=== PATIENT | male | born 1950 | race Caucasian/White ===

== ENCOUNTER 2019-06-17 07:27 | Inpatient (IN) ==
--- NOTE | 2019-05-16 15:02 | PAT Medication Instructions ---
Medication Instructions Date of Service May 16, 2019 Home Medications acetaminophen 500 mg PO Q6H PRN 05/10/19 [History Confirmed 05/10/19] albuterol sulfate [Ventolin HFA] 2 puff INHALATION Q6H PRN 05/10/19 [History Confirmed 05/10/19] aspirin [Aspirin Low Dose] 81 mg PO QAM 05/10/19 [History Confirmed 05/10/19] atorvastatin 40 mg PO PM 05/10/19 [History Confirmed 05/10/19] clopidogrel 75 mg PO QAM 05/10/19 [History Confirmed 05/10/19] loratadine 10 mg PO QAM 05/10/19 [History Confirmed 05/10/19] losartan 25 mg PO QAM 05/10/19 [History Confirmed 05/10/19] multivitamin 1 tab PO QAM 05/10/19 [History Confirmed 05/10/19] omega 0-lkd-dxq-fish oil [Fish Oil] 1 cap PO QAM 05/10/19 [History Confirmed 05/10/19] pantoprazole 40 mg PO QAM 05/10/19 [History Confirmed 05/10/19] tamsulosin 0.4 mg PO QPM 05/10/19 [History Confirmed 05/10/19] ASK your prescriber and surgeon aspirin [Aspirin Low Dose] 81 mg PO QAM 05/10/19 [History Confirmed 05/10/19] clopidogrel 75 mg PO QAM 05/10/19 [History Confirmed 05/10/19] STOP taking 2 weeks before surgery (or as soon as possible if surgery is within 2 weeks) omega 7-jsb-htn-fish oil [Fish Oil] 1 cap PO QAM 05/10/19 [History Confirmed 05/10/19] DO NOT take the morning of surgery loratadine 10 mg PO QAM 05/10/19 [History Confirmed 05/10/19] losartan 25 mg PO QAM 05/10/19 [History Confirmed 05/10/19] multivitamin 1 tab PO QAM 05/10/19 [History Confirmed 05/10/19] Take morning of surgery With a small sip of water, OTHERWISE NOTHING TO EAT OR DRINK AFTER MIDNIGHT: acetaminophen 500 mg PO Q6H PRN (okay to take up to 4 hours prior to surgery if needed) albuterol sulfate [Ventolin HFA] 2 puff INHALATION Q6H PRN (use if needed; please bring with you to hospital day of surgery if possible) pantoprazole 40 mg PO QAM 05/10/19 [History Confirmed 05/10/19] Take evening before surgery acetaminophen 500 mg PO Q6H PRN (if needed) albuterol sulfate [Ventolin HFA] 2 puff INHALATION Q6H PRN (if needed) tamsulosin 0.4 mg PO QPM 05/10/19 [History Confirmed 05/10/19] Other Notes If you have any questions please call us at [phone] or [phone] or [phone] or [phone]
--- NOTE | 2019-05-17 10:42 | Anesthesiology Consultation ---
Date of Service May 17, 2019 Assessment & Plan (1) Encounter for pre-operative examination: - ASA/plavix instructions per surgeon/prescriber - Cardiology: 06/11/18: "Overall stable from cardiac perspective. Will refer to thoracic medicine. Has chronic limiting class III RANGEL symptoms for several years. Cardiac work-up negative in the past. Dobutamine stress echo 06/2017 negative for ischemia. No major valvular heart disease. No CHF. Pro-BNP negative in the past. Will continue same medications." - Thoracic medication: 09/11/18: Dx interstitial lung disease. CT reviewed. " Patient is clinically stable." Chart Review Chart Review: Pending: Refer to Additional Notes / Consult section (pending preop testing (labs, EKG)) and Patient seen in Pre Admission Testing Teaching & Discussion Pre-Anesthesia Teaching/Discussion Notes: Instructed NPO after midnight before surgery,except medications with 15 cc of water. Medication instructions provided according to the PAT guidelines. History Surgery Operation Date: 06/17/19 09:30 Proposed Procedures p Right Total Shoulder Arthroplasty, Distal Clavical Excision - Boston Burch MD Height/Weight Height: 6 ft 7 in Weight: 104.8 kg Allergies Allergy/AdvReac Type Severity Reaction Status Date / Time Iodinated Contrast Media Allergy Unknown TROUBLE Verified 05/10/19 08:58 BREATHING Medications Home Medications Medication Instructions Recorded Confirmed Last Taken acetaminophen 500 mg PO Q6H PRN 05/10/19 05/10/19 Unknown albuterol sulfate [Ventolin HFA] 2 puff INHALATION Q6H PRN 05/10/19 05/10/19 Unknown aspirin [Aspirin Low Dose] 81 mg PO QAM 05/10/19 05/10/19 Unknown atorvastatin 40 mg PO PM 05/10/19 05/10/19 Unknown clopidogrel 75 mg PO QAM 05/10/19 05/10/19 Unknown loratadine 10 mg PO QAM 05/10/19 05/10/19 Unknown losartan 25 mg PO QAM 05/10/19 05/10/19 Unknown multivitamin 1 tab PO QAM 05/10/19 05/10/19 Unknown omega 1-yhq-oev-fish oil [Fish Oil] 1 cap PO QAM 05/10/19 05/10/19 Unknown pantoprazole 40 mg PO QAM 05/10/19 05/10/19 Unknown tamsulosin 0.4 mg PO QPM 05/10/19 05/10/19 Unknown Past Medical History Medical History (Updated 05/17/19 @ 11:11 by Shara Talbot) Arthritis BPH (benign prostatic hyperplasia) CAD (coronary artery disease) BMS x 1 to LAD (2015) Cancer of kidney s/p resection (no chemo/no XRT) COPD (chronic obstructive pulmonary disease) controlled GERD (gastroesophageal reflux disease) History of skin cancer Hx of myocardial infarction BMS x 1 to LAD (2015) Hx of sleep apnea CPAP (patient non-compliant/will try to be more compliant leading up to surgery) Hyperlipidemia Hypertension Interstitial lung disease Exercise / Class Metabolic Activity III < 4 Walking/Shop/Light housework Past Family History Family History Sister Family history of diabetes mellitus Daughter FHx: cancer Mother FHx: cancer Sister FHx: cancer Past Surgical History Surgical History History of endoscopic sinus surgery Endoscopic sinus surgery: 02/03/14: Grade I DD, MAC#4, ETT 8 at [facility] [place] History of kidney surgery biopsy, kidney mass resection (cancerous) Hx of cardiac cath BMS x 1 to LAD (2015) Hx of colonoscopy Hx of left cataract extraction Hx of prostate biopsy Hx of right cataract extraction Past Anesthesia History No Family Hx of Anesthesia Complications and Other Perioperative bradycardia with remote kidney mass resection ([facility])- unable to obtain records. No similar issues with subsequent endoscopic sinus surgery 01/2014 at [facility]. History of PONV No Hx of PONV and No Hx of Motion Sickness Social History Smoking Status: Never smoker Do You Dip or Chew Tobacco: No Hx Alcohol Use: Yes Alcohol type: beer alcohol intake frequency: holidays/special occasions only Hx Substance Use: No Review of Systems Patient denies chest pain, shortness of breath, cough, wheezing, palpitations. Physical Exam Vital Signs VITALS BP 162/92 (patient reports did not take BP medications this morning/advised the importance of compliance) P 96 TEMP 98.4 SP02 96%RA RESP 18 PHYSICAL Full neck and c-spine range of motion. Full TMJ range of motion. TMD 3 finger breaths Mallampati Score 2 Dentition: upper/lower dentures full Lungs: clear throughout to auscultation Cardiac: regular rate and rhythm, no murmurs noted Spine: normal Carotid arteries: negative bruit Extremities: no edema Testing Echocardiogram Date: 11/04/15 LVEF 50-54%. Moderately increased cLV wall thickness. Moderate sized apical anteroseptal wall motion abnormality with HK to akinesis of these segments. Grade I DD. Stress Test Date: 06/22/17 Type: exercise Stress ECHO negative for inducible ischemia. Resting wall motion suggests [place] in LAD after first septal branch. No new dobutamine induced wall motion abnormality. 88% MPHR. Cardiac Catheterization Date: 09/19/15 99% mid LAD lesion--> balloon angioplasty--> BMS placed. Other Testing Chest CT: 08/28/18: No focal consolidation. Mildly prominent mediastinal lymph nodes (likely reactive). Chronic interstitial lung disease, unchanged.
[2019-05-17 11:33] LABS: Basophils # (auto) 0.02 K/uL (0-0.2); Basophils % (auto) 0.2 %; Eosinophils # (auto) 0.18 K/uL (0-0.5); Eosinophils % (auto) 1.8 %; Hematocrit (blood only) 46.8 % (42-52); Immature Granulocytes # (auto) 0.01 K/uL (0.00-0.02); Immature Granulocytes % (auto) 0.1 %; Lymphocytes % (auto) 20.5 %; Mean Corpuscular Hemoglobin 30.5 pg (25-34); Mean Corpuscular Hgb Conc 34.2 g/dL (32-36); Mean Corpuscular Volume 89.3 fL (80-100); Mean Platelet Volume 10.2 fL (7.4-10.4); Monocytes # (auto) 0.55 K/uL (0.11-0.59); Monocytes % (auto) 5.4 %; Platelet Count 166 K/uL (130-400); RDW Coefficient of Variation 14.4 % (11.5-14.5); Red Blood Count 5.24 M/uL (4.7-6.1); White Blood Count 10.26 K/uL (4.8-10.8)
[2019-05-17 11:45] LABS: Appearance Urine Clear (Clear); Bacteria Urine Automated Negative (Negative); Bilirubin Urine Negative (Negative); Blood Urine Trace (Negative); Color Urine Yellow; Epithelial Cell Urine Auto 0-5 /lpf (0-5); Glucose Urine UA Negative (Negative); Ketones Urine Negative (Negative); Leukocyte Esterase Urine Negative (Negative); Nitrite Urine Negative (Negative); Protein Urine 3+ (Negative); RBC Urine Automated 0-4 /hpf (0-4); Specific Gravity Urine 1.018 (1.000-1.030); Urobilinogen Urine Negative (Negative)
[2019-05-17 11:46] LABS: INR 1.1 (0.9-1.1); Partial Thromboplastin Time 27.9 Seconds (21.0-31.0); Prothrombin Time 11.2 Seconds (9.0-12.0)
[2019-05-17 11:54] LABS: Albumin Level 3.8 gm/dl (3.4-5.0); BUN Creatinine Ratio 13.5 (10-20); Calcium 10.8 mg/dl (8.5-10.1); Creatinine Clr Calc Pharmacy 56.1 ml/min; Est GFR (Non-African American) 41.4; Potassium 4.3 mmol/L (3.5-5.1)
[2019-05-17 11:58] LABS: Estimated Average Glucose 105 mg/dl; Hemoglobin A1C 5.3 % (4.5-5.6)
--- NOTE | 2019-06-16 17:38 | History and Physical Report ---
DATE OF ADMISSION: 06/17/2019 CHIEF COMPLAINT: Chronic right shoulder pain. HISTORY OF PRESENT ILLNESS: This is a 68-year-old male patient of Dr. Red, complaining of chronic right shoulder pain, longstanding, now progressively getting worse. The patient has been diagnosed with end-stage osteoarthritis per clinical and radiographic exams. The patient has failed conservative treatment and wishes to proceed with a right total shoulder arthroplasty and open distal clavicle excision. PAST MEDICAL HISTORY: Coronary artery disease, status post an NE in 2016, hypertension, hypercholesterolemia, sleep apnea, anemia, rheumatoid arthritis, osteoarthritis, acid reflux, obesity. SOCIAL HISTORY: Nonsmoker, nondrinker. PAST SURGICAL HISTORY: Sinus surgery, kidney mass removal and a chest cyst removal. REVIEW OF SYSTEMS: Chronic right shoulder pain. Otherwise, denies any shortness of breath, chest pain, nausea, vomiting or any other joint complaints. FAMILY HISTORY: Noncontributory. MEDICATIONS: 1. Loratadine 10 mg daily. 2. Fluticasone 50 mcg actuation inhaler 1 spray daily in each nostril. 3. Ferrous fumarate 325 mg daily. 4. Fish oil daily. 5. Glucosamine and chondroitin daily. 6. Mucinex 600 mg every 12 hours as needed. 7. Famotidine 20 mg twice daily. 8. Advair HFA 45 mcg/21 mcg actuation inhaler 2 puffs twice daily. 9. Ventolin HFA 2 puffs every 4-6 hours as needed for rescue. 10. Pravastatin 40 mg daily. 11. Metoprolol daily. 12. Omeprazole 20 mg daily. 13. [place] 1-2 tablets as needed at night. 14. Lyrica 75 mg twice daily. ALLERGIES: No known drug allergies. PHYSICAL EXAMINATION: GENERAL: Well-developed, well-nourished 68-year-old male in no acute distress. He is alert and oriented x3 and pleasant. HEENT: Normocephalic, atraumatic. Extraocular motions are intact. Pupils are equal and reactive to light. HEART: Regular rate and rhythm, no murmurs. LUNGS: Clear. ABDOMEN: Soft, nontender, bowel sounds present. EXTREMITIES: Right shoulder reveals AC joint tenderness. Active range of motion 0-160, passively to 170. He has 5/5 strength with crepitation and pain. Neurologically and neurovascularly, he is intact in his right upper extremity. DIAGNOSES: Right shoulder end-stage osteoarthritis and acromioclavicular arthritis with a history of coronary artery disease, status post an myocardial infarction in 2016, hypertension, hypercholesterolemia, sleep apnea, anemia, rheumatoid arthritis, osteoarthritis, acid reflux, obesity. PLAN: The patient was advised of his diagnosis. Indications, risks, benefits, postop course have all been reviewed. The patient wished to proceed with a right total shoulder arthroplasty and open distal clavicle excision. Necessary consent forms, preoperative testing and clearances will be obtained.
[~2019-06-17 07:27] MED LIST: ACETAMINOPHEN 500 MG TAB PO SCH; CEFAZOLIN 2000MG 2,000 MG/15 ML SYR IV SCH; CeleBREX 200 MG CAP PO SCH; FAMOTIDINE 20 MG TAB PO SCH; GABAPENTIN 300 MG CAP PO SCH; LR 15ML/HR IV SCH; METOCLOPRAMIDE HCL 10 MG TABLET PO SCH; ROPIVACAINE 0.5% 5 MG/ML 30 ML VIAL ONE; dexAMETHasone 4 MG TAB PO SCH
--- NOTE | 2019-06-17 08:37 | History & Physical Bridge Note ---
Date of Service June 17, 2019 History & Physical Bridge Note I have examined the patient, reviewed the History & Physical and in the interval since the performance of the History & Physical I have noted the following changes of clinical significance: no changes noted
[2019-06-17] MEDS ORDERED: ROCURONIUM BROMIDE 10 MG/ML 5 ML VIAL ONE (09:09)
[2019-06-17] MEDS ORDERED: fentaNYL citrate 100 MCG/2 ML VIAL ONE (09:09)
[2019-06-17] MEDS ORDERED: MIDAZOLAM HCL 1 MG/ML 2ML VIAL ONE (09:09)
[2019-06-17] MEDS ORDERED: ONDANSETRON INJ 2 MG/ML 2 ML VIAL ONE (09:09)
[2019-06-17] MEDS ORDERED: GLYCOPYRROLATE 0.2 MG/ML VIAL ONE (09:09)
[2019-06-17] MEDS ORDERED: LIDOCAINE HCL 2% 2 ML VIAL/AMP(20MG/ML) INFIL ONE (09:09)
[2019-06-17] MEDS ORDERED: NEOSTIGMINE METHYLSULFATE 5 MG/5 ML SYR ONE (09:09)
[2019-06-17] MEDS ORDERED: PROPOFOL IV EMULSION 10 MG/ML 20 ML VIAL IV ONE (09:09)
[2019-06-17] MEDS ORDERED: BACITRACIN INJ 50,000 UNIT VIAL ONE (09:14)
[2019-06-17] MEDS ORDERED: EPINEPHrine HCL INJ 1 MG/ML 30ML ONE (09:15)
[2019-06-17] MEDS ORDERED: fentaNYL citrate 100 MCG/2 ML VIAL IV PRN (09:35)
[2019-06-17] MEDS ORDERED: ALBUTEROL 0.083% NEBU SOLN 3 ML VIAL INH PRN (09:35)
[2019-06-17] MEDS ORDERED: ONDANSETRON INJ 2 MG/ML 2 ML VIAL IV PRN ×2 (09:35→15:02)
[2019-06-17] MEDS ORDERED: ePHEDrine sulfate 50 MG/ML AMP IV PRN (09:35)
[2019-06-17] MEDS ORDERED: ATROPINE SULFATE 0.1 MG/ML 10ML SYR IV PRN (09:35)
--- NOTE | 2019-06-17 13:13 | Post Operative Brief Note ---
Immediate Post Op Note v1 Date of Surgery June 17, 2019 Pre & Post Diagnosis Operation Date: 06/17/19 10:30 Pre-Op Diagnosis: Right shoulder end-stage glenohumeral osteoarthritis and acromioclavicular arthritis subcoracoid loose body Post-Op Diagnosis: Right shoulder end-stage glenohumeral osteoarthritis and acromioclavicular arthritis intra-articular and subcoracoid loose bodies biceps tendinopathy biceps tenosynovitis I identified the patient and participated in the time-out.: Yes Procedure Operation Date: 06/17/19 10:30 Actual Procedures p Right Total Shoulder Arthroplasty, Distal Clavical Excision(Right), excision loose bodies biceps tenodesis- Boston Burch MD Surgeon Boston Burch MD Dry Kiln Feeder DEYA Velasquez Estimated Blood Loss 40 Findings Consistent with Post-Op Diagnosis Specimens Humeral head and distal clavicle Drains Preciado Catheter (16 pashto 5cc balloon preciado inserted by Annie Brock RN with return of clear yellow urine. Output to be monitored by anesthesia.) and Hemovac Drain (10 pashto dual) Anesthesia Type General Regional Complications none Disposition Accompanied Patient To Recovery: No Disposition: Recovery Room Overlapping Procedure I was present for: the critical portions of procedure. Back up surgeon: was not required during procedure.
--- NOTE | 2019-06-17 14:15 | XRay Report ---
RIGHT SHOULDER 2 VIEWS CLINICAL HISTORY: Postoperative examination. FINDINGS: 2 portable views of the right shoulder are obtained. No prior studies are available for bridget alfredo at the time of dictation. The skeletal structures are osteopenic. A right shoulder arthroplas ty is in near-anatomic alignment. No acute fracture is seen. Widening at the acromio clavicular joint is likely on a postoperative basis. Skin clips, soft tissue swelling, a surgical drain, and subcutan eous gas are expected postoperative findings. Atelectasis is noted in the right lung base. IMPRESSION: Expected postoperative changes status post right shoulder arthroplasty. No acute fracture is identified. Electronically signed by: Fercho Junior M.D. 06/17/2019 2:14 PM
--- NOTE | 2019-06-17 14:31 | Anesthesiology Progress Note ---
Date of Service June 17, 2019 Anesthesia Post Procedure Vital Signs Vital Signs: Temp Pulse Pulse Resp BP Pulse Ox 06/17/19 14:10 80 18 139/74 93 06/17/19 14:00 79 20 126/74 93 06/17/19 13:50 83 18 135/74 91 06/17/19 13:40 86 18 121/76 95 06/17/19 13:31 36.2 C L 84 20 124/72 95 06/17/19 08:19 37.1 C 85 20 152/92 H 94 Transfer of Care Handoff Completed per policy Notes Mental Status: alert / awake / arousable and participated in evaluation Patient Amnestic to Procedure: Yes Nausea / Vomiting: adequately controlled Pain: adequately controlled Airway Patency, RR, SpO2: stable & adequate BP & HR: stable & adequate Hydration State: stable & adequate Anesthetic Complications: no major complications apparent and Pt Satisfied with anesthetic care Notes: block is functioning well
[2019-06-17] MEDS ORDERED: MAGNESIUM HYDROXIDE SUSP 30 ML UDC PO PRN (15:02)
[2019-06-17] MEDS ORDERED: NALOXONE HCL 0.4 MG/1 ML VIAL/CARP IV PRN (15:02)
[2019-06-17] MEDS ORDERED: bisacodyL 10 MG SUPP PR PRN (15:02)
[2019-06-17] MEDS ORDERED: ALBUTEROL HFA 8 GM INHALER INH PRN (15:02)
--- NOTE | 2019-06-17 15:13 | Operative Report ---
Post Operative Report Pre & Post Diagnosis Operation Date: 06/17/19 10:30 Pre-Op Diagnosis: Right shoulder end-stage osteoarthritis and acromioclavicular arthritis subcoracoid loose body Post-Op Diagnosis: Right shoulder end-stage osteoarthritis and acromioclavicular arthritis biceps tenosynovitis biceps tendinopathy subcoracoid and glenohumeral loose bodies I identified the patient and participated in the time-out.: Yes Procedure Operation Date: 06/17/19 10:30 Actual Procedures Right Total Shoulder Arthroplasty, right distal Clavical Excision, biceps tenodesis, excision glenohumeral and subcoracoid loose bodies.- Boston Burch MD Surgeon Boston Burch MD Floor Waxer DEYA Velasquez Estimated Blood Loss 40 Findings Consistent with Post-Op Diagnosis Specimens Humeral head , distal clavicle Drains 2 Hemovac Anesthesia Type General Regional Complications none Disposition Accompanied Patient To Recovery: No Disposition: Recovery Room Indications 68-year-old male with progressive osteoarthritis in his right shoulder failed conservative management. Radiographs demonstrate [id number] glenohumeral joint space. He has large subcoracoid loose body. Has hypertrophic AC joint arthritis with large spurs at the AC joint. Description of Procedure The patient was taken to the operating room and anesthetized under a general and regional block anesthesia. A towel roll was placed under the medial border of the scapula of the right shoulder. The patient's head was placed on a foam headrest and protective eyewear was placed and the extremities were well padded. The arm was draped free in order to manipulate the shoulder as necessary. The shoulder exam demonstrated forward elevation 145 degrees abduction 90 degrees, external rotation 70 degrees and to rotation 90 degrees, [id number] crepitation, hypertrophic AC joint with large spurs. The shoulder was sterilely prepped and draped in the usual sterile fashion. An anterior deltopectoral approach was performed. A longitudinal incision was made in the interval. The skin was incised sharply and subcutaneous tissues dissected down to the fascia. The cephalic vein was identified and retracted laterally with the deltoid. Any crossing veins were tied off with silk ties and divided. The clavipectoral fascia was divided at the lateral margin of the conjoined tendon and divided up to the level of the coracoacromial ligament which was preserved. The upper 1 cm of the pectoralis was released for inferior exposure. The biceps tendon findings demonstrated chronic tenosynovitis with chronically thickened tenosynovium and proximal tendinopathy. The rotator cuff tendon findings demonstrated intact rotator cuff. The circumflex vessels were identified and tied off with silk ties and divided laterally. The fibers and subscapularis were split longitudinally at the level of the circumflex vessels down to the capsule and then reflected off the inferior capsule using a Kitner elevator. The axillary nerve was identified with a tug test and protected with a blunt Mc retractor. The rotator interval was opened up and extended down to the glenoid. The biceps tendon was identified and tenodesed to the pectoralis tendon with [id number]-[id number] #2 FiberWire sutures in the proximal biceps was resected. The subscapularis tendon was taken down with a trans-tendinous incision leaving a cuff of tissue for repair on the lesser tuberosity. The incision was carried down to the tendon and the capsule and a #1 Vicryl suture w as placed into the free end of the subscapularis tendon. And the capsule on the undersurface of the subscapularis tendon there was a large loose body which was about 10 x 12 mm. This was resected from the capsule. There was a larger approximately 15 x 10 mm irregular subcoracoid loose body which was removed from the subcoracoid space. The capsule was subperiosteally dissected off the inferior neck of the humerus exposing the humeral osteophytes which demonstrated relatively large inferior humeral osteophytes extending from anterior to posterior. The humeral head demonstrated eburnated bone. The osteophytes were excised with an artist chisel and a rongeur. The capsular release along the inferior neck of the humerus was completed. The humerus was then retracted posterior to the glenoid with a Fukuda retractor. The remainder of the biceps tendon and labrum was resected. The glenoid findings demonstrated small amount of superior cartilage still remaining on the glenoid otherwise the remainder of the glenoid was completely down to eburnated bone from anterior to posterior with concentric type A wear. I did an anterior inferior and posterior inferior release with electrocautery on bone and a Albarran elevator with the axillary nerve continuing to be protected with the blunt Hohmann retractor inferiorly. When the releases were completed and the humeral head was exposed with some extension and external rotation and in anatomic head cut was made using the oscillating saw . The humeral head was then retracted posterior to the glenoid with Hohmann retractors and Bankart retractor placed anteriorly. A central drill hole was made into the glenoid. The glenoid was sized for a size large 40 radius Cortiloc Tornier glenoid component. The Tornier ascend flex total shoulder a rthroplasty system was used and the large 40 radius Cortiloc pegged glenoid component was chosen. The glenoid was reamed and the central drill widened and the guide for the peg holes was placed in the peg holes were drilled and a trial component was placed with a tight fit. The trial was removed and the glenoid was irrigated with pulsatile lavage antibiotic solution and the drill holes were dried and packed with epinephrine-soaked tampons for hemostasis. The Palacos G cement was vacuum mixed. The final component was cemented into position and held in position with pressure until the cement cured. Attention was taken to the humeral preparation. A centralizing awl was used in the canal followed by broaches up to a size 7. This had the appropriate fit and fill. A size 54 x 23 high offset millimeter humeral head was then used. It was rotated into appropriate position. A trial reduction was performed and the shoulder was stable. The trial was removed and the humerus and canal were irrigated with antibiotic solution with bacitracin. 3 drill holes were made into the hard bone in the bicipital groove lateral to the lesser tuberosity and 3 #5 FiberWire transosseous sutures were placed for repair of the subscapularis. After further irrigation of the canal and the final components were assembled. The final components were the 54 x 23 high offset aequalis humeral head attached to the ascend flex standard 7B humeral stem from [facility]. The implant was then impacted into the humerus with a tight press-fit. The humerus was reduced to the glenoid and stability verified. The subscapularis was repaired with the #5 FiberWire sutures in a Marc-Maxwell suture technique and lateral row fixation with [id number] #2 FiberWire in the soft tissue. The rotator interval was closed and maximal external rotation. The pectoralis was then closed with [id number] #2 FiberWire suture. A transverse incision was then made across the AC joint. Subcutaneous flaps were elevated. Transverse incision was made down to bone across the AC joint exposing a large superior spurs at the AC joint which were excised with a rongeur. The joint demonstrated hypertrophic AC joint arthritis end-stage. An oscillating saw was used to resect 1 cm distal clavicle. The deltotrapezial fascia was repaired with [id number] #2 FiberWire sutures after some copious irrigation with pulsatile lavage. The repair was secure with passive range of motion. The subcutaneous tissues were closed with interrupted 2-0 Vicryl sutures and skin was closed with santosh. Further irrigation was performed in the area of the deltopectoral incision. In the area of the deltopectoral incision 2 Hemovac drains were placed. The deltopectoral interval was closed with [id number] #1 Vicryl sutures. The subcutaneous tissues were closed with interrupted 2-0 Vicryl and the skin was closed with santosh and a sterile dressing was applied. The patient tolerated the procedure well. DEYA Velasquez my physician medical assistant float, assisted in soft tissue retraction instrument management suture management and assisted in the subcutaneous and skin closure and will participate in the postoperative care the patient. I attest to the content of the Intraoperative Record and any orders documented therein. Any exceptions are noted below.
[2019-06-17] MEDS ORDERED: ARTIFICIAL TEARS OP PRN (16:05)
--- NOTE | 2019-06-17 16:10 | Consultation ---
Date of Consultation June 17, 2019 Assessment & Plan (1) Status post total shoulder arthroplasty: Post op day# 0 S/P Right total shoulder arthroplasty by Dr Marcin LORENZO#40ml -pain management per ortho -wound management per ortho -PT/OT as appropriate -DVT prophylaxis per ortho - SCDs -incentive spirometry -monitor H&H for acute blood loss anemia; Pre-op Hgb: 16 (2) CAD (coronary artery disease): H/O NSTEMI 2016, H/O bare metal stent to LAD in 2015 No CP, SOB -Continue aspirin, Plavix, statin (3) Hypertension: Stable -Continue amlodipine -Hold losartan for tomorrow morning and evaluate BP and renal functions (4) Hyperlipidemia: -Continue atorvastatin (5) COPD (chronic obstructive pulmonary disease): No acute exacerbation -Continue Advair, continue albuterol prn (6) CKD (chronic kidney disease), stage III: Baseline Cr: 1.6 -Avoid nephrotoxic agents -Monitor renal functions (7) LISET (obstructive sleep apnea): -CPAP HS (8) Depression: -Continue sertraline (9) GERD (gastroesophageal reflux disease): -Continue PPI (10) BPH (benign prostatic hyperplasia): -Continue tamsulosin DVT Prophylaxis: -SCDs per ortho Disposition per primary team Follows with Dr Henderson for routine care Pt was seen and care coordinated with Dr Alvarenga. See addendum Pt will be followed by Dr Hernandez starting 06/18/19. Thank you for this consultation. We will follow the patient with you during their hospital stay. You can reach a member of the [facility] Hospitalist Team 23/01 via pager @ [phone]. Supervising Physician Co-Signing Physician Notes I have seen and examined the patient and have discussed the case with the provider above. I agree with the assessment and plan as stated. 68 yo M with shoulder surgery today, recovering well, tolerating PO, denies nausea. Some persistent numbness in his fingers but otherwise, reports his pain is well controlled. Exam reveals clear lungs to auscultation and cardiac exam revels normal S1 and S2 without evidence of murmurs. RUE is in a sling. Continue s upportive care efforts per Ortho. Chronic comorbidities are stable. Thank you for this consultation. DO Lyle History of Present Illness Reason for Consultation: Post op medical management Attending Physician: Boston Burch MD History of Present Illness Pt is 68 y/o M with PMH CAD NSTEMI s/p stent to LAD in 2016, HTN, dyslipidemia, CKD III, COPD, LISET, GERD, depression, BPH seen in medical consultation s/p R total shoulder arthroplasty today by Dr Burch. Post op pt reports right arm still numb/tingling. Denies any pain yet post op. Reports feeling well and denies N/V. Has Roblero cath in place. Denies fever/chi lls, diaphoresis, TREVINO, dizziness, syncope, vision changes, neck pain, CP, SOB, orthopnea, palpitations, cough, sore throat, choking, otalgia, rhinorrhea, abdominal pain, extremity edema, rashes, urinary symptoms. Allergies Allergy/AdvReac Type Severity Reaction Status Date / Time Iodinated Contrast Media Allergy Unknown TROUBLE Verified 06/17/19 08:10 BREATHING Home Medications Home Medications Medication Instructions Recorded Confirmed Type acetaminophen 500 mg PO Q6H PRN 05/10/19 06/17/19 History albuterol sulfate [Ventolin HFA] 2 puff INHALATION Q6H PRN 05/10/19 06/17/19 History aspirin [Aspirin Low Dose] 81 mg PO QAM 05/10/19 06/17/19 History atorvastatin 40 mg PO DAILY 05/10/19 06/17/19 History clopidogrel 75 mg PO QAM 05/10/19 06/17/19 History loratadine 10 mg PO QAM 05/10/19 06/17/19 History losartan 25 mg PO QAM 05/10/19 06/17/19 History multivitamin 1 tab PO QAM 05/10/19 06/17/19 History omega 0-wrk-wkj-fish oil [Fish Oil] 1 cap PO QAM 05/10/19 06/17/19 History pantoprazole 40 mg PO QAM 05/10/19 06/17/19 History tamsulosin 0.4 mg PO QPM 05/10/19 06/17/19 History amlodipine 5 mg PO DAILY 06/17/19 06/17/19 History fluticasone propion-salmeterol 1 inh INHALATION BID 06/17/19 06/17/19 History [Advair Diskus] nitroglycerin 0.4 mg SUBLINGUAL UD 06/17/19 06/17/19 History peg 400-propylene glycol (PF) 1 drp OPHTHALMIC (EYE) BID PRN 06/17/19 06/17/19 History [Systane (PF)] sertraline 50 mg PO DAILY 06/17/19 06/17/19 History Patient History Medical History Arthritis BPH (benign prostatic hyperplasia) CAD (coronary artery disease) BMS x 1 to LAD (2015) Cancer of kidney s/p resection (no chemo/no XRT) COPD (chronic obstructive pulmonary disease) controlled GERD (gastroesophageal reflux disease) History of skin cancer Hx of myocardial infarction BMS x 1 to LAD (2015) Hx of sleep apnea CPAP (patient non-compliant/will try to be more compliant leading up to surge ry) Hyperlipidemia Hypertension Interstitial lung disease Surgical History History of endoscopic sinus surgery Endoscopic sinus surgery: 02/03/14: Grade I DD, MAC#4, ETT 8 at [facility] [place] History of kidney surgery biopsy, kidney mass resection (cancerous) Hx of cardiac cath BMS x 1 to LAD (2015) Hx of colonoscopy Hx of left cataract extraction Hx of prostate biopsy Hx of right cataract extraction Family History Sister Family history of diabetes mellitus Daughter FHx: cancer Mother FHx: cancer Sister FHx: cancer Social History (Updated 06/17/19 @ 16:12 by Hannah Rodriguez PA-C) Preferred Language: Slovak Communication Ability: Effective Beliefs That Will Affect Care: None Current Living Situation: Alone Feels Safe at Home: Yes Smoking Status: Never smoker Do You Dip or Chew Tobacco: No ; Second Hand Exposure: No ; Hx Alcohol Use: Yes Alcohol type: beer Alcohol Intake Frequency: Rarely Hx Substance Use: No Review of Systems Review of Systems: All systems reviewed & are unremarkable except as noted in HPI & below Physical Exam Physical Exam: General: no distress, WDWN Head: normocephalic, atraumatic Eyes: PERRL, EOM's intact, conjunctiva non-injected, anicteric ENT: normal inspection external ears, nose, mucous membranes moist Neck: supple, trachea midline Lungs: clear, no respiratory distress, no wheezing/rhonchi/rales CV: RRR, no murmur, no pretibial edema Abd: normal BS, soft, non-tender Ext: RUE: +surgical dressing to right shoulder in place, +drain in place with serosanguineous drainage, arm in sling, minimal ROM fingers at this time, +brisk capillary refill, sensation to light touch intact, +distal pulses intact. BLE:no calf tenderness, distal pulses intact Neuro: A&O x 3, no focal deficits noted, normal affect Skin: warm, dry Results & Data Vital Signs (Past 12 Hours) Vital Signs Temp Pulse Pulse Resp BP Pulse Ox 06/17/19 15:43 36.5 C 88 18 119/72 94 06/17/19 15:23 37.0 C 83 17 130/71 06/17/19 14:45 36.4 C L 79 18 125/74 94 06/17/19 14:30 79 20 131/74 93 06/17/19 14:25 36.6 C 80 20 98/75 L 93 06/17/19 14:10 80 18 139/74 93 06/17/19 14:00 79 20 126/74 93 06/17/19 13:50 83 18 135/74 91 06/17/19 13:40 86 18 121/76 95 06/17/19 13:31 36.2 C L 84 20 124/72 95 06/17/19 08:19 37.1 C 85 20 152/92 H 94
[2019-06-17] MEDS: ACETAMINOPHEN 500 MG TAB PO SCH ×2 (16:14→21:35)
[2019-06-17] MEDS: SODIUM CHLORIDE 0.9% 1000ML 1,000 ML IV SCH (16:14)
[2019-06-17] MEDS ORDERED: NITROGLYCERIN SL 0.4 MG/TAB TAB SL PRN (16:15)
[2019-06-17] MEDS: CEFAZOLIN 2000MG 2,000 MG/15 ML SYR IV SCH (19:48)
[2019-06-17] MEDS: ATORVASTATIN 40 MG TAB PO SCH (19:48)
[2019-06-17] MEDS: TAMSULOSIN HCL 0.4 MG CAP PO SCH (19:48)
[2019-06-17] MEDS: DOCUSATE SODIUM 100 MG CAP PO SCH (19:48)
[2019-06-17] MEDS: SENNA 8.6 MG TAB PO SCH (19:48)
[2019-06-17] MEDS: FLUTICASONE/SALMETEROL 250/50 (ADVAIR) 14 PUFF/1 INHALER INH SCH (19:49)
[2019-06-18] MEDS: SODIUM CHLORIDE 0.9% 1000ML 1,000 ML IV SCH (02:36)
[2019-06-18] MEDS: CEFAZOLIN 2000MG 2,000 MG/15 ML SYR IV SCH (04:45)
[2019-06-18 05:52] LABS: Hemoglobin 12.8 g/dL (14.0-18.0); Mean Corpuscular Hemoglobin 29.5 pg (25-34); Mean Corpuscular Hgb Conc 32.8 g/dL (32-36); Mean Corpuscular Volume 89.9 fL (80-100); Mean Platelet Volume 9.7 fL (7.4-10.4); Platelet Count 135 K/uL (130-400); RDW Coefficient of Variation 14.7 % (11.5-14.5); RDW Standard Deviation 48.4 fL (36.4-46.3); Red Blood Count 4.34 M/uL (4.7-6.1); White Blood Count 14.31 K/uL (4.8-10.8)
[2019-06-18 06:20] LABS: Immature Granulocytes # (auto) 0.05 K/uL (0.00-0.02); Immature Granulocytes % (auto) 0.3 %; Lymphocytes # (auto) 1.12 K/uL (1.2-3.4); Lymphocytes % (auto) 7.8 %; Monocytes # (auto) 0.99 K/uL (0.11-0.59); Monocytes % (auto) 6.9 %; Neutrophils # (auto) 12.15 K/uL (1.4-6.5)
[2019-06-18 06:26] LABS: BUN Creatinine Ratio 17.4 (10-20); Creatinine Clr Calc Pharmacy 47.9 ml/min; Est GFR (Non-African American) 37.1; Potassium 4.5 mmol/L (3.5-5.1)
[2019-06-18] MEDS: ACETAMINOPHEN 500 MG TAB PO SCH ×3 (06:27→22:25)
--- NOTE | 2019-06-18 08:07 | Anesthesiology Progress Note ---
Date of Service June 18, 2019 Anesthesia Post Procedure Vital Signs Vital Signs: Temp Pulse Pulse Pulse Resp BP Pulse Ox 06/18/19 07:07 36.8 C 61 16 136/75 93 06/18/19 03:47 36.8 C 62 18 131/75 95 06/17/19 23:45 36.5 C 70 18 142/82 H 93 06/17/19 22:49 82 16 92 06/17/19 18:59 36.7 C 99 H 18 124/75 91 06/17/19 17:44 37.2 C 100 H 18 120/79 93 06/17/19 16:42 36.7 C 93 H 17 132/81 95 06/17/19 15:43 36.5 C 88 18 119/72 94 06/17/19 15:23 37.0 C 83 17 130/71 06/17/19 14:45 36.4 C L 79 18 125/74 94 06/17/19 14:30 79 20 131/74 93 06/17/19 14:25 36.6 C 80 20 98/75 L 93 06/17/19 14:10 80 18 139/74 93 06/17/19 14:00 79 20 126/74 93 06/17/19 13:50 83 18 135/74 91 06/17/19 13:40 86 18 121/76 95 06/17/19 13:31 36.2 C L 84 20 124/72 95 06/17/19 08:19 37.1 C 85 20 152/92 H 94 Pain Intensity Right Shoulder: Pain Intensity: 0 Notes Mental Status: alert / awake / arousable Patient Amnestic to Procedure: Yes Nausea / Vomiting: adequately controlled Pain: adequately controlled Airway Patency, RR, SpO2: stable & adequate BP & HR: stable & adequate Hydration State: stable & adequate Anesthetic Complications: no major complications apparent and Pt Satisfied with anesthetic care
--- NOTE | 2019-06-18 08:08 | Orthopedic Progress Note ---
Date of Service June 18, 2019 Assessment & Plan (1) Status post total shoulder arthroplasty: POD #1, Right TSA, DCE, biceps tenodesis PT/ OT DVT proph- ASA, Plavix as per home/ PCP D/C plans- Home w OPPT As per medicine. Subjective POD #1, Doing well. Denies SOB, CP, N/V. Pain controlled well. Physical Exam Physical Exam: Right shoulder dressings/ drain c/d/i. Fingers mobile. Sling in tact. A&Ox3. Results & Data Vital Signs (Past 12 Hours) Vital Signs Temp Pulse Pulse Resp BP Pulse Ox 06/18/19 07:07 36.8 C 61 16 136/75 93 06/18/19 03:47 36.8 C 62 18 131/75 95 06/17/19 23:45 36.5 C 70 18 142/82 H 93 06/17/19 22:49 82 16 92
[2019-06-18] MEDS: FLUTICASONE/SALMETEROL 250/50 (ADVAIR) 14 PUFF/1 INHALER INH SCH ×2 (08:57→20:50)
[2019-06-18] MEDS: DOCUSATE SODIUM 100 MG CAP PO SCH ×2 (08:58→20:49)
[2019-06-18] MEDS: LORATADINE 10 MG TAB PO SCH (08:58)
[2019-06-18] MEDS: MULTIVITAMIN TAB PO SCH (08:59)
[2019-06-18] MEDS: ASPIRIN 81 MG ECTAB PO SCH (08:59)
[2019-06-18] MEDS: AMLODIPINE BESYLATE 5 MG TAB PO SCH (08:59)
[2019-06-18] MEDS: SERTRALINE HCL 50 MG TABLET PO SCH (09:00)
[2019-06-18] MEDS: PANTOprazole 40 MG TAB PO SCH (09:00)
[2019-06-18] MEDS ORDERED: LOSARTAN POTASSIUM 25 MG TAB PO SCH (09:00)
[2019-06-18] MEDS ORDERED: MULTIVITAMIN TAB PO SCH (09:00)
--- NOTE | 2019-06-18 09:09 | Hospitalist Progress Note ---
Date of Service June 18, 2019 Assessment & Plan (1) Status post total shoulder arthroplasty: Post op day# 1 S/P Right total shoulder arthroplasty by Dr Marcin LORENZO#40ml Total drain output #305ml Post op with some right shoulder pain. -pain management per ortho -wound management per ortho -PT/OT as appropriate -DVT prophylaxis per ortho - SCDs -incentive spirometry Hgb: 12.8. Pre-op Hgb: 16, Monitor H&H (2) CAD (coronary artery disease): H/O NSTEMI 2015, H/O bare metal stent to LAD in 2015 No CP, SOB -Continue aspirin, Plavix, statin (3) Hypertension: Stable -Continue amlodipine -Hold losartan and re-evaluate BP and renal functions tomorrow (4) Hyperlipidemia: -Continue atorvastatin (5) COPD (chronic obstructive pulmonary disease): No acute exacerbation -Continue Advair, continue albuterol prn (6) CKD (chronic kidney disease), stage III: Cr: 1.8 Baseline Cr: 1.6 -Avoid nephrotoxic agents -Monitor renal functions (7) LISET (obstructive sleep apnea): -CPAP HS (8) Depression: -Continue sertraline (9) GERD (gastroesophageal reflux disease): -Continue PPI (10) BPH (benign prostatic hyperplasia): -Continue tamsulosin DVT Prophylaxis: -SCDs per ortho Disposition per primary team Follows with Dr Henderson for routine care Pt was seen and care coordinated with Dr Hernandez. See addendum Supervising Physician Co-Signing Physician Notes HISTORY: Record reviewed. Patient interviewed and examined. Care coordinated with Hannah Rodriguez PA-C. Doing well postoperatively. No chest pain, cough, SOB, nausea, vomiting. Having some postop pain. EXAM: General- no distress Lungs- clear to auscultation; no respiratory distress Cardiovascular- RRR; no JVD; no pretibial edema Abdomen- + bowel sounds, soft, nontender Extremities- no cyanosis; no calf tenderness; RUE immobilized Neuro- alert, oriented Skin- warm & dry DATA: Hgb 12.8 Creat 1.83 Other lab studies as noted. ASSESSMENT AND PLAN: Doing well postoperatively. Serum creatinine 1.83, compared to preop of 1.67. Hold losartan and recheck labs in a.m. CAD without anginal symptoms. Continue usual meds. Sleep apnea. Continue CPAP. Please refer to DEYA Rodriguez's documentation for discussion of other issues. Subjective F/U. Pt seen and examined sitting in bedside chair. POD #1 S/P R total shoulder arthroplasty. Pt states some pain to right shoulder this morning after therapy and getting dressed. No further paresthesias to fingers. Eating and drinking well. Denies nausea or vomiting. Roblero cath just removed this morning and has not urinated yet. No BM yet today. Denies fever/chills, diaphoresis, TREVINO, dizziness, syncope, vision changes, neck pain, CP, SOB, orthopnea, palpitations, cough, sore throat, choking, otalgia, rhinorrhea, abdominal pain, weakness, extremity edema, rashes. Review of Systems Review of Systems: All systems reviewed & are unremarkable except as noted in HPI & below Physical Exam Physical Exam: General: no distress, WDWN Head: normocephalic, atraumatic Eyes: PERRL, EOM's intact, conjunctiva non-injected, anicteric ENT: normal inspection external ears, nose, mucous membranes moist Neck: supple, trachea midline Lungs: clear, no respiratory distress, no wheezing/rhonchi/rales CV: RRR, no murmur, no pretibial edema Abd: normal BS, soft, non-tender Ext: RUE: +surgical dressing to right shoulder in place, +drain in place with serosanguineous drainage, R arm in sling,ROM fingers intact, brisk capillary refill, sensation to light touch intact, distal pulses intact. BLE:no calf tenderness, distal pulses intact Neuro: A&O x 3, no focal deficits noted, normal affect Skin: warm, dry Results & Data Vital Signs (Past 12 Hours) Vital Signs Temp Pulse Pulse Resp BP Pulse Ox 06/18/19 07:07 36.8 C 61 16 136/75 93 06/18/19 03:47 36.8 C 62 18 131/75 95 06/17/19 23:45 36.5 C 70 18 142/82 H 93 06/17/19 22:49 82 16 92 Laboratory Results Short CBC 06/18/19 Range/Units 05:38 WBC 14.31 H (4.8-10.8) K/uL Hgb 12.8 L (14.0-18.0) g/dL Hct 39.0 L (42-52) % Plt Count 135 (130-400) K/uL [facility] 06/18/19 05:38 Sodium 138 Potassium 4.5 Chloride 110 H Carbon Dioxide 25 BUN 32 H Creatinine 1.83 H Glucose 121 H Calcium 9.0
[2019-06-18] MEDS: OXYCODONE HCL IR 5 MG TAB (IMMEDIATE RELEASE) PO PRN ×3 (09:15→20:56)
[2019-06-18] MEDS: CLOPIDOGREL BISULFATE 75 MG TAB PO SCH (09:20)
[2019-06-18] MEDS ORDERED: HYDROmorphone INJ 0.5 MG/0.5 ML SYR IV PRN (12:39)
[2019-06-18] MEDS: ATORVASTATIN 40 MG TAB PO SCH (20:49)
[2019-06-18] MEDS: TAMSULOSIN HCL 0.4 MG CAP PO SCH (20:50)
[2019-06-18] MEDS: SENNA 8.6 MG TAB PO SCH (20:50)
[2019-06-19] MEDS: ACETAMINOPHEN 500 MG TAB PO SCH ×3 (05:47→21:09)
[2019-06-19 06:30] LABS: Basophils # (auto) 0.01 K/uL (0-0.2); Basophils % (auto) 0.1 %; Eosinophils # (auto) 0.07 K/uL (0-0.5); Eosinophils % (auto) 0.6 %; Hematocrit (blood only) 38.1 % (42-52); Hemoglobin 12.4 g/dL (14.0-18.0); Immature Granulocytes # (auto) 0.02 K/uL (0.00-0.02); Immature Granulocytes % (auto) 0.2 %; Lymphocytes # (auto) 1.32 K/uL (1.2-3.4); Lymphocytes % (auto) 11.3 %; Mean Corpuscular Hemoglobin 29.9 pg (25-34); Mean Corpuscular Hgb Conc 32.5 g/dL (32-36); Mean Corpuscular Volume 91.8 fL (80-100); Mean Platelet Volume 9.8 fL (7.4-10.4); Monocytes # (auto) 1.18 K/uL (0.11-0.59); Monocytes % (auto) 10.1 %; Neutrophils # (auto) 9.09 K/uL (1.4-6.5); Neutrophils % (auto) 77.7 %; Platelet Count 138 K/uL (130-400); RDW Coefficient of Variation 15.3 % (11.5-14.5); RDW Standard Deviation 51.7 fL (36.4-46.3); Red Blood Count 4.15 M/uL (4.7-6.1); White Blood Count 11.69 K/uL (4.8-10.8)
--- NOTE | 2019-06-19 06:44 | Orthopedic Progress Note ---
Date of Service June 19, 2019 Assessment & Plan (1) Status post total shoulder arthroplasty: POD #2, Right TSA, DCE, biceps tenodesis PT/ OT DVT proph- ASA, Plavix as per home/ PCP D/C plans- Home w OPPT Will monitor dizziness today. As per medicine. Subjective POD #2, States a bit dizzy, not sure if its pain pills, etc. HBG stable. BP mildly elevated. Denies SOB, CP, N/V. Pain controlled. Physical Exam Physical Exam: Right shoulder dressings c/d/i, no drainage. Fingers mobile. Sling in tact. A&Ox3. Results & Data Vital Signs (Past 12 Hours) Vital Signs Temp Pulse Resp BP Pulse Ox 06/18/ 23:13 92 06/18/ 23:12 36.9 C 67 16 146/77 H 88 L
[2019-06-19 07:03] LABS: BUN Creatinine Ratio 23.4 (10-20); Creatinine Clr Calc Pharmacy 50.4 ml/min; Est GFR (African American) 45.7; Est GFR (Non-African American) 39.4; Potassium 4.2 mmol/L (3.5-5.1)
[2019-06-19] MEDS: LORATADINE 10 MG TAB PO SCH (08:23)
[2019-06-19] MEDS: FLUTICASONE/SALMETEROL 250/50 (ADVAIR) 14 PUFF/1 INHALER INH SCH ×2 (08:23→21:06)
[2019-06-19] MEDS: CLOPIDOGREL BISULFATE 75 MG TAB PO SCH (08:23)
[2019-06-19] MEDS: DOCUSATE SODIUM 100 MG CAP PO SCH ×2 (08:23→21:08)
[2019-06-19] MEDS: MULTIVITAMIN TAB PO SCH (08:23)
[2019-06-19] MEDS: AMLODIPINE BESYLATE 5 MG TAB PO SCH (08:23)
[2019-06-19] MEDS: PANTOprazole 40 MG TAB PO SCH (08:23)
[2019-06-19] MEDS: SERTRALINE HCL 50 MG TABLET PO SCH (08:24)
[2019-06-19] MEDS: ASPIRIN 81 MG ECTAB PO SCH (08:24)
--- NOTE | 2019-06-19 17:42 | Hospitalist Progress Note ---
Date of Service June 19, 2019 Assessment & Plan (1) Status post total shoulder arthroplasty: S/P Right total shoulder arthroplasty by Dr Burch POD#2 Pain management, wound care, activity, DVT Px as per ortho Continue incentive spirometry Bowel regimen to prevent constipation (2) CAD (coronary artery disease): H/O NSTEMI 2016, H/O bare metal stent to LAD in 2016 Continue aspirin, Plavix, statin (3) Hypertension: Stable Continue amlodipine Resume losartan as able (4) Hyperlipidemia: Continue atorvastatin (5) COPD (chronic obstructive pulmonary disease): No acute exacerbation Continue Advair, continue albuterol prn (6) CKD (chronic kidney disease), stage III: Baseline Cr: 1.6 Avoid nephrotoxic agents Monitor renal functions (7) LISET (obstructive sleep apnea): CPAP HS Urinary Retention Likely due to BPH Bladder Scan PRN Continue Flomax (8) Depression: Continue sertraline (9) GERD (gastroesophageal reflux disease): Continue PPI (10) BPH (benign prostatic hyperplasia): Continue tamsulosin DVT Px: SCDs per ortho Disposition As per primary team Subjective Patient is seen and examined at bedside Shoulder pain is controlled Reports intermittent urinary retention Denies any chest pain, dizziness, nausea, abdominal pain Offers no other complaints Review of Systems Review of Systems: All systems reviewed & are unremarkable except as noted in HPI & below Physical Exam Physical Exam: Physical Exam: Vitals signs as noted above General Appearance:Moderately built and nourished, no apparent distress Head: normocephalic, Atraumatic Eyes: normal inspection, EOMI Neck: supple, Trachea midline Respiratory/Chest: Decreased breath sounds, CTA Cardiovascular: S1, S2, No murmur Abdomen/GI:Soft, Non tender, Bowel sounds present Extremities/Musculoskelatal:normal inspection, no edema, R shoulder in dressing Neurologic/Psych:AAOX3, grossly no focal neurological deficits Skin: normal color, warm Results & Data Vital Signs (Past 12 Hours) Vital Signs Temp Pulse Resp BP Pulse Ox 06/19/19 15:18 37.1 C 83 17 155/79 H 93 06/19/19 07:33 37 C 68 16 144/79 H 92 Laboratory Results Short CBC 06/19/19 Range/Units 06:16 WBC 11.69 H (4.8-10.8) K/uL Hgb 12.4 L (14.0-18.0) g/dL Hct 38.1 L (42-52) % Plt Count 138 (130-400) K/uL BMP 06/19/19 06:16 Sodium 138 Potassium 4.2 Chloride 110 H Carbon Dioxide 26 BUN 41 H Creatinine 1.74 H Glucose 110 H Calcium 9.0
[2019-06-19] MEDS: SENNA 8.6 MG TAB PO SCH (21:07)
[2019-06-19] MEDS: TAMSULOSIN HCL 0.4 MG CAP PO SCH (21:07)
[2019-06-19] MEDS: ATORVASTATIN 40 MG TAB PO SCH (21:08)
[2019-06-20] MEDS: ACETAMINOPHEN 500 MG TAB PO SCH (05:37)
[2019-06-20 06:49] LABS: BUN Creatinine Ratio 19.9 (10-20); Calcium 9.6 mg/dl (8.5-10.1); Creatinine Clr Calc Pharmacy 57.7 ml/min; Est GFR (African American) 53.8; Est GFR (Non-African American) 46.4; Potassium 4.1 mmol/L (3.5-5.1)
[2019-06-20 07:10] VITALS: BP 161/89; PULSE 70; TEMP 98.1; O2SAT 93
[2019-06-20] MEDS: CLOPIDOGREL BISULFATE 75 MG TAB PO SCH (08:40)
[2019-06-20] MEDS: DOCUSATE SODIUM 100 MG CAP PO SCH (08:40)
[2019-06-20] MEDS: MULTIVITAMIN TAB PO SCH (08:40)
[2019-06-20] MEDS: AMLODIPINE BESYLATE 5 MG TAB PO SCH (08:40)
[2019-06-20] MEDS: PANTOprazole 40 MG TAB PO SCH (08:40)
[2019-06-20] MEDS: OXYCODONE HCL IR 5 MG TAB (IMMEDIATE RELEASE) PO PRN (08:40)
[2019-06-20] MEDS: FLUTICASONE/SALMETEROL 250/50 (ADVAIR) 14 PUFF/1 INHALER INH SCH (08:41)
[2019-06-20] MEDS: SERTRALINE HCL 50 MG TABLET PO SCH (08:41)
[2019-06-20] MEDS: ASPIRIN 81 MG ECTAB PO SCH (08:41)
[2019-06-20] MEDS: LORATADINE 10 MG TAB PO SCH (08:41)
--- NOTE | 2019-06-20 09:03 | Orthopedic Progress Note ---
Date of Service June 20, 2019 Assessment & Plan (1) Status post total shoulder arthroplasty: POD #3, Right TSA, DCE, biceps tenodesis PT/ OT DVT proph- ASA, Plavix as per home/ PCP D/C plans- Home w OPPT today As per medicine. Subjective POD #3 Patient is seen and examined at bedside Shoulder pain is controlled Denies any chest pain, dizziness, nausea, abdominal pain Offers no other complaints Physical Exam Physical Exam: Right shoulder dressings c/d/i, no drainage. Fingers mobile Sling in tact. A&Ox3. Results & Data Vital Signs (Past 12 Hours) Vital Signs Temp Pulse Resp BP Pulse Ox 06/20/ 07:09 36.7 C 70 18 161/89 H 93 06/20/ 00:51 37.1 C 06/19/ 23:20 37.9 C H 82 16 168/86 H 92
--- NOTE | 2019-06-20 12:33 | Hospitalist Progress Note ---
Date of Service June 20, 2019 Assessment & Plan (1) Status post total shoulder arthroplasty: S/P Right total shoulder arthroplasty by Dr Burch POD#3 Pain management, wound care, activity, DVT Px as per ortho Continue incentive spirometry Continue bowel regimen to prevent constipation (2) CAD (coronary artery disease): H/O NSTEMI 2016, H/O bare metal stent to LAD in 2016 Continue aspirin, Plavix, statin (3) Hypertension: Stable Continue amlodipine, losartan (4) Hyperlipidemia: Continue atorvastatin (5) COPD (chronic obstructive pulmonary disease): No acute exacerbation No wheezing on exam Continue Advair, continue albuterol prn (6) CKD (chronic kidney disease), stage III: Baseline Cr: 1.6 Cr:1.5 today Avoid nephrotoxic agents Monitor renal functions (7) LISET (obstructive sleep apnea): CPAP HS Urinary Retention:Resolved Likely due to BPH Continue Flomax (8) Depression: Continue sertraline (9) GERD (gastroesophageal reflux disease): Continue PPI (10) BPH (benign prostatic hyperplasia): Continue tamsulosin DVT Px: SCDs per ortho Disposition As per primary team Subjective Patient is seen and examined at bedside Denies any Shoulder pain today No issues with Urination today Denies any chest pain, dizziness, nausea, abdominal pain Offers no other complaints Plan to be discharged home today Review of Systems Review of Systems: All systems reviewed & are unremarkable except as noted in HPI & below Physical Exam Physical Exam: Physical Exam: Vitals signs as noted above General Appearance:Moderately built and nourished, no apparent distress Head: normocephalic, Atraumatic Eyes: normal inspection, EOMI Neck: supple, Trachea midline Respiratory/Chest: Decreased breath sounds, CTA Cardiovascular: S1, S2, No murmur Abdomen/GI:Soft, Non tender, Bowel sounds present Extremities/Musculoskelatal:normal inspection, no edema, R shoulder in dressing Neurologic/Psych:AAOX3, grossly no focal neurological deficits Skin: normal color, warm Results & Data Vital Signs (Past 12 Hours) Vital Signs Temp Pulse Resp BP Pulse Ox 06/20/19 07:09 36.7 C 70 18 161/89 H 93 06/20/19 00:[address] [facility] 06/20/19 05:51 Sodium 142 Potassium 4.1 Chloride 111 H Carbon Dioxide 26 BUN 30 H Creatinine 1.52 H Glucose 113 H Calcium 9.6
== END 2019-06-20 11:47 | disposition home health service (06) | DRG 483 ==
LOC: ASU 07:27 → 3E 13:37